=== PATIENT | female | born 1970 | race Caucasian/White ===

== ENCOUNTER 2018-03-19 11:42 | Emergency (ER) | payer BC ==
[~2018-03-19] VITALS: Ht 160 cm; Wt 74.8 kg
[2018-03-19] MEDS ORDERED: NABUMETONE 750750 M1 PO (12:20)
[2018-03-19 13:01] VITALS: BP 129/87
== END 2018-03-19 13:02 | disposition home or self-care (01) ==
LOC: M.ERS 11:42
DX: M25.562 Pain in left knee (principal)

== ENCOUNTER 2019-12-10 11:53 | Emergency (ER) | payer OTHER, BC ==
[~2019-12-10] VITALS: Ht 162.6 cm; Wt 72.6 kg
[~2019-12-10 11:53] MED LIST: NABUMETONE 750750 M1 PO
[2019-12-10] MEDS ORDERED: ZANAFLEX4 MG PO (13:21)
[2019-12-10] MEDS ORDERED: IBUPROFEN 800800 M1 PO (13:21)
[2019-12-10 13:33] VITALS: BP 121/79
== END 2019-12-10 13:34 | disposition home or self-care (01) ==
LOC: M.ERS 11:53
DX: S16.1XXA Strain of muscle, fascia and tendon at neck level, initial encounter (principal); S39.012A Strain of muscle, fascia and tendon of lower back, initial encounter; S09.90XA Unspecified injury of head, initial encounter; V49.88XA Car occupant (driver) (passenger) injured in other specified transport accidents, initial encounter; Y93.89 Activity, other specified; Y92.413 State road as the place of occurrence of the external cause; Y99.9 Unspecified external cause status